=== PATIENT | male | born 1995 | race Caucasian/White ===

== ENCOUNTER 2024-09-11 20:07 | Emergency (ER) | payer OTHER, SELFPAY ==
--- NOTE | ~2024-09-11 | CT_ITS ---
CLINICAL HISTORY: left chest wall pain CT chest without contrast Comparison: None Findings: The heart size is normal. The visualized thyroid and mediastinum are unremarkable. 3 mm subpleural nodule left lower lobe lateral basilar segment image 110:5. The upper abdomen is unremarkable. No acute fractures. IMPRESSION: 3 mm left lower lobe pulmonary nodule. Duong society recommendations do not apply to individuals less than 35 years of age. Etiology of left chest wall pain is indeterminate. This document has been electronically signed by: Caridad Smith MD on 09/11/2024 21:09:03
[2024-09-11 20:11] VITALS: BP 117/72; PULSE 102; RESP 18; O2SAT 99; BMI 23.8
--- NOTE | 2024-09-11 20:13 | ED_ITS ---
HPI - General Adult General Chief complaint: General Medical Stated complaint: 4 broken ribs? coming from Urgent Care Time Seen by Provider: 09/11/24 21:21 Source: patient Limitations: no limitations History of Present Illness ED Provider: Blaire Woodson PA-C HPI narrative: 29-year-old male presents for evaluation of left chest wall pain. Patient was sparring in [facility] another individual landed on his left chest wall. He went to urgent care in the official x-ray report stated no displaced rib fractures. Apparently the provider disagreed with the report. Pain worse with movement and with breathing. Related Data Previous Rx's ?Medication ?Instructions ?Recorded ketorolac 10 mg tablet 10 mg PO Q6H PRN pain #20 tabs 09/11/24 methocarbamol 750 mg tablet 1,500 mg (2 x 750 mg) PO Q8H PRN 09/11/24 pain, moderate #24 tabs Allergies Allergy/AdvReac Type Severity Reaction Status Date / Time No Known Allergies Allergy Verified 09/11/24 20:13 Review of Systems Review of Systems: Yes all other systems are reviewed and are negative Constitutional: Constitutional: Denies fatigue and Denies fever(s) Cardiovascular: Cardiovascular: Reports chest pain and Denies dyspnea Respiratory: Respiratory: Denies cough and Denies dyspnea Endocrine: Endocrine: Denies fatigue PMF Past Medical History Attestation statement: The following information was validated with the patient. Social History Social History Advance Directives: No Advance Directives Information Provided: No Physical Exam ED Vital Signs: Vital Signs - 24 hr 09/11/24 20:11 Pulse Rate 102 H Respiratory Rate 18 Blood Pressure 117/72 Pulse Oximetry 99 Oxygen Delivery Method Room Air BMI result Body Mass Index 23.8 Const Other: Alert Orientation/consciousness: patient oriented x3 Resp Other: Splinting with inspiration Cardio Other: Normal peripheral perfusion Skin Other: Warm dry no rash Neuro General: patient oriented x3, gait normal, no focal motor deficits and CN's II- XI intact bilaterally Psych Other: Cooperative Course Course Course Narrative: RME, this is a rapid medical exam performed by Hong Enrique please refer to primary provider for complete H&P- 29-year-old male presents for evaluation of left chest wall pain. Patient was sparring in [facility] another individual landed on his left chest wall. He went to urgent care in the official x-ray report stated no displaced rib fractures. Apparently the provider disagreed with the report Medications Administered Discontinued Medications Generic Name Dose Route Start Last Admin Trade Name Freq PRN Reason Stop Dose Admin Ketorolac Tromethamine 15 mg 09/11/24 21:28 09/11/24 21:36 Ketorolac Tromethamine 15 Mg/Ml Vial IM 09/11/24 21:29 15 mg ONCE ONE Administration Medical Decision Making Medical Decision Making MDM Narrative: 29-year-old male presents for evaluation of left chest wall pain. [facility] individual landed on his left chest wall. He went to urgent care in the official x-ray report stated no displaced rib fractures. Apparently the provider disagreed with the report. Pain worse with movement and with breathing. No chronic issues History: Per patient I have considered the following differential diagnoses: Chest wall contusion, pulmonary contusion, hemothorax, pneumothorax, rib fractures Plan: CT of the chest was ordered from triage, there was no evidence of pneumothorax, hemothorax or fractures, we will be treating him for a contusion. Ordering incentive spirometry, sending with an anti-inflammatory and a muscle relaxant. I have independently reviewed the following tests: CT chest, IMPRESSION: 3 mm left lower lobe pulmonary nodule. Duong society recommendations do not apply to individuals less than 35 years of age. Etiology of left chest wall pain is indeterminate. This document has been electronically signed by: Caridad Smith MD on 09/11/2024 21:09:03 Discharge Plan Discharge Clinical Impression: Chest wall contusion Patient Disposition: Home, Self-Care Instructions: How to Use an Incentive Spirometer (ED), Rib Contusion (ED) Additional Instructions: The CT of your chest was negative for fracture, we are treating you for rib contusions. See home care instructions. Use the methocarbamol as needed for pain, this is a muscle relaxant, it will cause drowsiness, do not drive or operate machinery while taking the medication. Use the ketorolac as directed this is the anti-inflammatory. Use the incentive spirometry as directed, to keep your lungs well aerated. Follow up with your primary care provider within the next week. Prescriptions: New ketorolac 10 mg tablet 10 mg PO Q6H PRN (Reason: pain) Qty: 20 0RF Rx Instructions: maximum total duration of 5 days from all oral, intranasal, or parenteral formulations. The patient received an intramuscular dose of Toradol here in the emergency department methocarbamol 750 mg tablet 1,500 mg PO Q8H PRN (Reason: pain, moderate) Qty: 24 0RF Print Language: Albanian
--- OUTSIDE RECORDS SUMMARY | 2024-09-11 20:42 | XMS_ITS | Clinical Summary ---
[facility] Address [address] [place] [address] [address] Care Team Providers Care Public Health Social Worker Name Role Phone Kishan Duron Md Unavailable Poc, Not Assigned Pcp Or Primary Care Provider U navailable Allergies No known active allergies Medications No known medications Active Problems No known active problems Immunizations Name Administration Dates Next Due DTP Vaccine 09/15/2000, 7,03/02/1996,12/26,1995 HFlu B Conj (Unspecified Formulation) ,03/02/1996,1995,10/24 HPV4 Vaccine(6,11,16,18) (Gardasil4) 06/2013,08/30/2012,06/16/2012,06/16 Hep B Vaccine (Unspecified Formulation) 06/05/1996,1995,1995 MMR Vaccine 08/31/1999,12/04/1996 Meningococcal ACWY (Menactra ) Conjugate Vaccine 12/07/2013,06/01/2007 Polio Vaccine (Inactivated) 09/15/2000,0 03/02/1996,1995,10/24 TdaP 06/01/2007 Varicella Vaccine 06/01/2007,12/04/1996 Social History Tobacco Use Types Packs/Day Years Used Date Smoking Tobacco: Unknown Sex and Gender Information Value Date Recorded Sex Assigned at Not on file Legal Sex Male 10:24 PM EDT Gender Identity Not on file Sexual Orientation Not on file Obstetrics History Last Filed Vital Signs Vital Sign Reading Time Taken Comments Blood Pressure 116/62 06/14/2018 9:02 AM EST Pulse 86 12/03/2016 11:17 AM EDT Temperature 36.6 ??C (97.9 ??F) 12/03/2016 11:17 AM E DT Respiratory Rate - - Oxygen Saturation 99% 12/03/2016 11:17 AM EDT Inhaled Oxygen Concentration - - Weight 62.7 kg (138 lb 3.2 oz) 06/14/2018 9:02 A M EST Height - - Body Mass Index - - Plan of Treatment Health Maintenance Due Date Last Done Comments HEPATITIS B VACCINE (3 of 3 - 3-dose series) 07/31/1996 06/05/1996, 1995, 1995 HEP B INITIAL SCREENING 2013 HEP C SCREENING 2013 HIV SCREENING 2013 LIPID SCREENING 2015 DTAP/TDAP/TD VACCINE (7 - Td or Tdap) 06/01/2017 06/01/2007, 09/15/2000, 03/12/1997, Additional history exists PERIODIC HEALTH REVIEW 2017 COVID-19 Vaccine () 03/04/2024 FLU SEASONAL (#1) 03/04/2024 06/13/2020 HAEMOPHILUS INFLUENZA VACCINE Completed 03/12/1997, 03/02/1996, 1995, Additional history exists POLIO VACCINE Completed 09/15/2000, 02/03, 1995, Additional history exists HEPATITIS A VACCINE Aged Out No longe r eligible based on patient's age to complete this topic PNEUMOCOCCAL VACCINE(S) Aged Out No l onger eligible based on patient's age to complete this topic RSV Vaccine Infant//toddler Aged Out No longer eligible based on patient's age to complete this topic Insurance [id number] Care Teams Public Health Social Worker Relationship Specialty Start Date End Date Kishan Duron MD PCP - Payer 06/14/18 Poc, Not Assigned Pcp Or PCP - General 06/06/23
--- OUTSIDE RECORDS SUMMARY | 2024-09-11 20:42 | XMS_ITS | Clinical Summary ---
Author Organization [facility] Address [address] [place] [address] Care Team Providers Care Ceo And President Name Role Phone Pcp, No Primary Care Provider [phone] Allergies No known active allergies Medications No known medications Social History Tobacco Use Types Packs/Day Years Used Date Smoking Tobacco: Never Smokeless Tobacco: Never Tobacco Cessation:Counseling Given: Yes Sex and Gender Information Value Date Recorded Sex Assigned at Not on file Legal Sex Male 12:49 PM EST Gender Identity Not on file Sexual Orientation Not on file Last Filed Vital Signs Vital Sign Reading Time Taken Comments Blood Pressure 106/70 10/30/2021 4:03 PM EDT Pulse 90 10/30/2021 4:03 PM EDT Temperature 37.2 ??C (98.9 ??F) 10/30/2021 4:03 PM ED T Respiratory Rate 18 10/30/2021 4:03 PM EDT Oxygen Saturation 98% 10/30/2021 4:03 PM EDT Inhaled Oxygen Concentration - - Weight - - Height - - Body Mass Index - - Plan of Treatment Health Maintenance Due Date Last Done Comments Depression: Screening Annually using PHQ-2/9 in Adults 18 yrs or above (or HM Modifier)([facility]) 2013 Hepatitis C Virus Infection in Adolescents and Adults: Screening (or Modifier) ([facility]) 2013 SDOH Screening Reminder: Annually for all adults ([facility]) 2013 Tobacco Smoking Cessation: i n Adults excluding Women: Behavioral and Pharmacotherapy Interventions ([facility]) 2013 Lipid Screening: Once for Me n aged 20 to 35 yrs ([facility]) 2015 Flu Vaccination: Yearly for ages 18mos through 64 years (or Modifier)([facility]) 02/02/2024 COVID-19 Vaccine Screening: Initial Series and Booster Status ([facility]) (1 - 2023- season) 2024 DTaP/Tdap/Td Vaccines ([facility]) (3 - Td or Tdap) 11/15/2024 11/15/2014, 06/01/2007 Zoster/Shingles Vaccine Series Screening: Adults aged 18+ yrs (or HM Modifiers)([facility] ) (1 of 2) 2045 12/30/2014, 11/21/2014, 06/01/2007, Additional history exists Pneumococcal Vaccination Screening: Pts 0-19 & 19-64 yrs of age ([facility] ) Aged Out No longer eligible based on patient's age to complete this topic Medical Devices Not on file Insurance Care Teams Ceo And President Relationship Specialty Start Date End Date Pcp, Zonia PCP - General Family Medicine 01/09/21
[2024-09-11] MEDS: Ketorolac Tromethamine 15 MG/ML VIAL IM (21:36)
--- NOTE | 2024-09-11 21:43 | PC.NURSE ---
PT Medicated per sep, pt tolerated IM toradol well. Incentive spirometer teaching provided, pt demonstrated spirometer use and verbalized understanding, pt states he has no other questions at this time.
[2024-09-11 22:14] VITALS: BP 117/72; PULSE 102; RESP 18; TEMP 36.7; O2SAT 99
== END 2024-09-11 22:17 | disposition home or self-care (01) ==
PROVIDERS: Emergency Provider Emergency Medicine; PCP Nurse Practitioner Family
DX: S20.212A Contusion of left front wall of thorax, initial encounter (principal); R07.89 Other chest pain; X58.XXXA Exposure to other specified factors, initial encounter; Y93.75 Activity, martial arts; Y92.89 Other specified places as the place of occurrence of the external cause; Y99.8 Other external cause status
CPT/HCPCS: 71250; 96372; 99284; J1885

== ENCOUNTER → 2024-09-11 20:11 | Outpatient (BNV) | payer OTHER, SELFPAY | PROVIDERS: Emergency Provider Emergency Medicine; PCP Nurse Practitioner Family; Visit Provider Radiology Diagnostic Radiology | DX: R91.1 Solitary pulmonary nodule (principal) | CPT/HCPCS: 71250 ==